=== PATIENT | male | born 1980 | race Hispanic/Latino ===

== ENCOUNTER 2023-11-25 21:39 | Emergency (ER) | payer SELFPAY ==
[~2023-11-25] VITALS: Ht 170.2 cm; Wt 80.7 kg
[2023-11-25 21:58] VITALS: PULSE 55; RESP 16; TEMP 98.6
[2023-11-25 23:32] LABS: CLARITY,URINE SL CLOUDY (CLEAR); COLOR,URINE YELLOW (YELLOW)
[2023-11-25 23:33] LABS: BILIRUBIN,URINE NEGATIVE (NEGATIVE); GLUCOSE, URINE NEGATIVE (NEGATIVE); KETONES,URINE TRACE (NEGATIVE); LEUKOCYTE ESTERASE ,URINE SMALL (NEGATIVE); NITRITE,URINE NEGATIVE (NEGATIVE); PH,URINE 5.5 (5 - 7); PROTEIN,URINE DIPSTICK 1+ (NEGATIVE); URINE UROBILINOGEN 0.2 mg/dL (0.2 - 1)
[2023-11-25 23:36] LABS: BACTERIA,URINE MANY /HPF; EPITHELIAL CELLS,URINE FEW /LPF; WBC,URINE (MAN) >50 /HPF (0-5)
[2023-11-25 23:42] VITALS: BP 121/64; O2SAT 99
== END 2023-11-25 23:44 | disposition home or self-care (01) ==
LOC: ER 21:47
DX: R31.9 Hematuria, unspecified (principal); Z96.0 Presence of urogenital implants
CPT/HCPCS: 74176; 81001; 99283

== ENCOUNTER 2023-12-11 13:50 | Inpatient (IN) | payer SELFPAY ==
[2023-12-10 15:08] LABS: BASOPHILS % 0.3 % (0.0-1.0); EOSINOPHILS # (AUTO) 0.1 (0.0-0.4); EOSINOPHILS % 1.4 % (0.0-6.0); HEMATOCRIT 41.6 % (38.2-49.6); HEMOGLOBIN 13.6 g/dL (14.0-18.0); LYMPHOCYTES # (AUTO) 2.3 (1.0-3.2); LYMPHOCYTES % 26.4 % (18.0-39.1); MEAN CORPUSCULAR HEMOGLOBIN 31.3 pg (28-32); MEAN CORPUSCULAR HGB CONC 32.7 g/dL (31-35); MEAN CORPUSCULAR VOLUME 95.6 fL (81-99); MONOCYTES # (AUTO) 0.6 (0.2-0.8); MONOCYTES % 7.3 % (4.4-11.3); NEUTROPHILS # (AUTO) 5.7 (2.1-6.9); NEUTROPHILS % 64.4 % (38.7-80.0); PLATELET COUNT 271 x10e3/uL (140-360); RED BLOOD COUNT 4.35 x10e6/uL (4.3-5.7); RED CELL DISTRIBUTION WIDTH 12.9 % (11.7-14.4)
[2023-12-10 16:03] LABS: ANION GAP 14.9 mmol/L (8-16); CALCIUM 9.3 mg/dL (8.4-10.2); CREATININE, SERUM 0.88 mg/dL (0.72-1.25); POTASSIUM 3.9 mmol/L (3.5-5.1)
[~2023-12-11] VITALS: Ht 170.2 cm; Wt 80.7 kg
[~2023-12-11 13:50] MED LIST: DEXAMETHASONE SOD PHOS INJ 4 MG/ML SDV ONE; FENTANYL CITRATE/PF 100MCG/2 ML INJ ONE; GLYCOPYRROLATE INJ 0.2 MG/ML VIAL ONE; HYDRALAZINE HCL 20 MG/ML VIAL ONE; LABETALOL HCL 5 MG/ML 20ML VIAL ONE; LIDOCAINE HCL 2% LOCAL INJ 5 ML SDV VIAL INJ ONE; METOCLOPRAMIDE HCL 10 MG/2ML VIAL ONE; MIDAZOLAM HCL 2 MG/2 ML VIAL ONE; Morphine 10mg syringe 10 MG/ML INJ ONE; ONDANSETRON HCL INJ 2MG/ML 2ML 2 MG/ML VIAL ONE; PROPOFOL IV EMULSION 10 MG/ML 20 ML VIAL ONE; PROZAC20 MG PO; ROCURONIUM BROMIDE 10 MG/ML 5ML VIAL IV ONE; SEVOFLURANE INHAL SOLN 250 ML PEN BTL ONE; SUCCINYLCHOLINE CHLORIDE 20 MG/ML 10ML VIAL ONE
[2023-12-11] MEDS ORDERED: CEFTRIAXONE 1 GM VIAL ONE (14:38)
[2023-12-11] MEDS: LACTATED RINGER'S 1,000 ML ONE (14:45)
[2023-12-11] MEDS: GENTAMICIN 80MG/NS 100 ML 200 ML IV ONE (14:55)
[2023-12-11] MEDS ORDERED: FLOMAX0.4 MG PO (15:23)
[2023-12-11] MEDS ORDERED: TYLENOL EXTRA500 MG PO (15:23)
[2023-12-11] MEDS ORDERED: BUPIVACAINE LIPOSOME/PF 266 MG/20 ML IJ ONE (16:28)
[2023-12-11] MEDS ORDERED: ACETAMINOPHEN 1000 MG/100 ML IV PRN (17:15)
[2023-12-11] MEDS ORDERED: ONDANSETRON HCL INJ 2MG/ML 2ML 2 MG/ML VIAL IV PRN (17:15)
[2023-12-11] MEDS ORDERED: NALOXONE HCL INJ 0.4 MG/ML AMP IV PRN (17:15)
[2023-12-11] MEDS ORDERED: DIPHENHYDRAMINE HCL INJ 50 MG/ML VIAL IM PRN (17:15)
[2023-12-11] MEDS ORDERED: SUGAMMADEX SODIUM 200 MG/2 ML VIAL IV ONE (18:55)
[2023-12-11] MEDS: MEPERIDINE HCL INJ 25 MG/ML VIAL ONE (19:22)
[2023-12-11] MEDS: ONDANSETRON HCL INJ 2MG/ML 2ML 2 MG/ML VIAL ONE (19:26)
[2023-12-11] MEDS: SODIUM CHLORIDE 0.9% 250ML IRRIG IR SCH (19:30)
[2023-12-11 19:50] LABS: BASOPHILS # (AUTO) 0.1 (0.0-0.1); BASOPHILS % 0.2 % (0.0-1.0); EOSINOPHILS % 0.2 % (0.0-6.0); HEMATOCRIT 40.4 % (38.2-49.6); HEMOGLOBIN 13.1 g/dL (14.0-18.0); LYMPHOCYTES # (AUTO) 1.7 (1.0-3.2); LYMPHOCYTES % 8.6 % (18.0-39.1); MEAN CORPUSCULAR HEMOGLOBIN 31.7 pg (28-32); MEAN CORPUSCULAR HGB CONC 32.4 g/dL (31-35); MEAN CORPUSCULAR VOLUME 97.8 fL (81-99); MONOCYTES # (AUTO) 0.6 (0.2-0.8); MONOCYTES % 2.9 % (4.4-11.3); NEUTROPHILS # (AUTO) 17.6 (2.1-6.9); NEUTROPHILS % 87.8 % (38.7-80.0); PLATELET COUNT 251 x10e3/uL (140-360); RED BLOOD COUNT 4.13 x10e6/uL (4.3-5.7); RED CELL DISTRIBUTION WIDTH 13.2 % (11.7-14.4)
[2023-12-11] MEDS: MORPHINE SULFATE 1 MG/ML 30ML PCA IV PRN (19:58)
[2023-12-11 20:08] LABS: ANION GAP 18.8 mmol/L (8-16); CALCIUM 8.7 mg/dL (8.4-10.2); CREATININE, SERUM 0.76 mg/dL (0.72-1.25); POTASSIUM 3.8 mmol/L (3.5-5.1)
[2023-12-11 20:29] VITALS: BP 117/45; PULSE 56; RESP 18; TEMP 97.8; O2SAT 99
[2023-12-11 21:00] VITALS: BP 117/45; PULSE 56; RESP 18; TEMP 97.8; O2SAT 99
[2023-12-11] MEDS: D5.45%NS/KCL 20MEQ 1,000 ML IV SCH (21:47)
[2023-12-11 22:45] VITALS: PULSE 51; RESP 18; O2SAT 98
[2023-12-12] VITALS (9 sets, daily range): BP systolic 116–130; BP diastolic 65–78; PULSE 52–72; RESP 16–18; TEMP 98.1–99; O2SAT 95–99
[2023-12-12 07:22] LABS: BASOPHILS % 0.2 % (0.0-1.0); HEMATOCRIT 40.1 % (38.2-49.6); LYMPHOCYTES # (AUTO) 1.5 (1.0-3.2); LYMPHOCYTES % 11.7 % (18.0-39.1); MEAN CORPUSCULAR HEMOGLOBIN 31.4 pg (28-32); MEAN CORPUSCULAR HGB CONC 32.4 g/dL (31-35); MEAN CORPUSCULAR VOLUME 96.9 fL (81-99); MONOCYTES # (AUTO) 1.1 (0.2-0.8); MONOCYTES % 8.5 % (4.4-11.3); NEUTROPHILS # (AUTO) 10.4 (2.1-6.9); NEUTROPHILS % 79.2 % (38.7-80.0); PLATELET COUNT 253 x10e3/uL (140-360); RED BLOOD COUNT 4.14 x10e6/uL (4.3-5.7); RED CELL DISTRIBUTION WIDTH 13.3 % (11.7-14.4); WHITE BLOOD COUNT 13.12 x10e3/uL (4.8-10.8)
[2023-12-12 07:38] LABS: CALCIUM 8.8 mg/dL (8.4-10.2); CREATININE, SERUM 0.79 mg/dL (0.72-1.25)
[2023-12-13 06:34] LABS: BASOPHILS % 0.4 % (0.0-1.0); EOSINOPHILS # (AUTO) 0.1 (0.0-0.4); EOSINOPHILS % 1.2 % (0.0-6.0); HEMATOCRIT 36.3 % (38.2-49.6); LYMPHOCYTES # (AUTO) 1.4 (1.0-3.2); LYMPHOCYTES % 14.1 % (18.0-39.1); MEAN CORPUSCULAR HEMOGLOBIN 31.5 pg (28-32); MEAN CORPUSCULAR HGB CONC 33.1 g/dL (31-35); MEAN CORPUSCULAR VOLUME 95.3 fL (81-99); MONOCYTES % 9.5 % (4.4-11.3); NEUTROPHILS # (AUTO) 7.5 (2.1-6.9); NEUTROPHILS % 74.5 % (38.7-80.0); PLATELET COUNT 218 x10e3/uL (140-360); RED BLOOD COUNT 3.81 x10e6/uL (4.3-5.7); RED CELL DISTRIBUTION WIDTH 13.4 % (11.7-14.4)
[2023-12-13 07:01] LABS: CREATININE, SERUM 0.72 mg/dL (0.72-1.25); POTASSIUM 4.1 mmol/L (3.5-5.1)
[2023-12-13 07:41] VITALS: PULSE 69; RESP 16; O2SAT 96
[2023-12-13 09:00] VITALS: BP 119/63; PULSE 69; RESP 18; TEMP 99; O2SAT 99
[2023-12-13] MEDS: ACETAMINOPHEN/CODEINE 300MG - 30MG TAB PO PRN (13:55)
[2023-12-13] MEDS: ACETAMINOPHEN 1000 MG/100 ML IV PRN (16:28)
[2023-12-13 17:28] VITALS: BP 110/64; PULSE 58; RESP 19; TEMP 98.6; O2SAT 100
[2023-12-13] MEDS: SENNA-S TABLET PO SCH (17:56)
[2023-12-13 20:00] VITALS: BP 113/68; PULSE 59; RESP 20; TEMP 98; O2SAT 100
[2023-12-13 20:43] VITALS: PULSE 68; RESP 16; O2SAT 98
[2023-12-13] MEDS: MORPHINE SULFATE 1 MG/ML 30ML PCA ONE (22:09)
[2023-12-14] VITALS (10 sets, daily range): BP systolic 114–129; BP diastolic 57–77; PULSE 54–71; RESP 16–20; TEMP 98.2–99; O2SAT 94–100
[2023-12-14 05:05] LABS: BASOPHILS % 0.3 % (0.0-1.0); EOSINOPHILS # (AUTO) 0.3 (0.0-0.4); EOSINOPHILS % 3.7 % (0.0-6.0); HEMATOCRIT 36.3 % (38.2-49.6); HEMOGLOBIN 11.8 g/dL (14.0-18.0); LYMPHOCYTES # (AUTO) 1.6 (1.0-3.2); MEAN CORPUSCULAR HEMOGLOBIN 31.5 pg (28-32); MEAN CORPUSCULAR HGB CONC 32.5 g/dL (31-35); MEAN CORPUSCULAR VOLUME 96.8 fL (81-99); MONOCYTES # (AUTO) 0.8 (0.2-0.8); MONOCYTES % 8.8 % (4.4-11.3); NEUTROPHILS # (AUTO) 6.1 (2.1-6.9); NEUTROPHILS % 68.6 % (38.7-80.0); PLATELET COUNT 221 x10e3/uL (140-360); RED BLOOD COUNT 3.75 x10e6/uL (4.3-5.7)
[2023-12-14 05:21] LABS: ANION GAP 12.7 mmol/L (8-16); CREATININE, SERUM 0.75 mg/dL (0.72-1.25); POTASSIUM 3.7 mmol/L (3.5-5.1)
[2023-12-14] MEDS ORDERED: ONDANSETRON HCL 4 MG ORAL DISINTEGRATING TAB PO PRN (14:15)
[2023-12-14] MEDS: LEVOFLOXACIN 500MG/D5W 100ML 100 ML IV SCH (17:13)
[2023-12-14] MEDS: KETOROLAC TROMETHAMINE 10 MG TAB PO PRN (18:21)
[2023-12-15] VITALS: BP 120/61; PULSE 51; RESP 17; TEMP 98.2; O2SAT 98
[2023-12-15 04:00] VITALS: BP 122/57; PULSE 54; RESP 18; TEMP 98.3; O2SAT 98
[2023-12-15 05:27] LABS: BASOPHILS % 0.4 % (0.0-1.0); EOSINOPHILS # (AUTO) 0.4 (0.0-0.4); EOSINOPHILS % 5.7 % (0.0-6.0); HEMATOCRIT 36.8 % (38.2-49.6); HEMOGLOBIN 11.9 g/dL (14.0-18.0); LYMPHOCYTES % 30.1 % (18.0-39.1); MEAN CORPUSCULAR HEMOGLOBIN 31.2 pg (28-32); MEAN CORPUSCULAR HGB CONC 32.3 g/dL (31-35); MEAN CORPUSCULAR VOLUME 96.6 fL (81-99); MONOCYTES # (AUTO) 0.7 (0.2-0.8); NEUTROPHILS # (AUTO) 3.6 (2.1-6.9); NEUTROPHILS % 53.7 % (38.7-80.0); PLATELET COUNT 255 x10e3/uL (140-360); RED BLOOD COUNT 3.81 x10e6/uL (4.3-5.7); RED CELL DISTRIBUTION WIDTH 12.9 % (11.7-14.4); WHITE BLOOD COUNT 6.68 x10e3/uL (4.8-10.8)
[2023-12-15 06:13] LABS: CALCIUM 8.8 mg/dL (8.4-10.2); CREATININE, SERUM 0.73 mg/dL (0.72-1.25)
[2023-12-15 08:04] VITALS: BP 116/51; PULSE 55; RESP 18; TEMP 98; O2SAT 98
[2023-12-15 11:59] VITALS: BP 115/59; PULSE 55; RESP 18; TEMP 97.8; O2SAT 99
[2023-12-15] MEDS ORDERED: LEVOFLOXACIN 500 MG TAB PO SCH (16:00)
== END 2023-12-15 12:20 | disposition home or self-care (01) | DRG 654 ==
LOC: OR 13:50 → PACU V 14:45 → MED/SURG2 20:42
PROVIDERS: ADMIT Urology; ATTEND Urology
PROC: 0T9B70Z Drainage of Bladder with Drainage Device, Via Natural or Artificial Opening (ICD-10-PCS; 2023-12-11)
PROC: 0TBB0ZZ Excision of Bladder, Open Approach (ICD-10-PCS; principal; 2023-12-11 16:37)
DX: N32.3 Diverticulum of bladder (principal); E87.1 Hypo-osmolality and hyponatremia; R33.9 Retention of urine, unspecified; Z87.440 Personal history of urinary (tract) infections; E66.9 Obesity, unspecified; Z68.27 Body mass index [BMI] 27.0-27.9, adult
CPT/HCPCS: 36415; 80048; 83735; 85025; 87086; 87186; 88304; 93005; 94799; C1758; J0330; J0360; J0690; J0696; J1100; J1580; J1956; J2001; J2175; J2250; J2270; J2405; J2765

== ENCOUNTER → 2024-01-01 | Outpatient (REF) | payer SELFPAY ==
[~2024-01-01] MED LIST changes: -DEXAMETHASONE SOD PHOS INJ 4 MG/ML SDV ONE; -FENTANYL CITRATE/PF 100MCG/2 ML INJ ONE; +FLOMAX0.4 MG PO; -GLYCOPYRROLATE INJ 0.2 MG/ML VIAL ONE; -HYDRALAZINE HCL 20 MG/ML VIAL ONE; +IOPAMIDOL 370 MG/ML 100 ML INFUS..BTL INJ ONE; -LABETALOL HCL 5 MG/ML 20ML VIAL ONE; -LIDOCAINE HCL 2% LOCAL INJ 5 ML SDV VIAL INJ ONE; -METOCLOPRAMIDE HCL 10 MG/2ML VIAL ONE; -MIDAZOLAM HCL 2 MG/2 ML VIAL ONE; -Morphine 10mg syringe 10 MG/ML INJ ONE; -ONDANSETRON HCL INJ 2MG/ML 2ML 2 MG/ML VIAL ONE; -PROPOFOL IV EMULSION 10 MG/ML 20 ML VIAL ONE; -ROCURONIUM BROMIDE 10 MG/ML 5ML VIAL IV ONE; -SEVOFLURANE INHAL SOLN 250 ML PEN BTL ONE; +SODIUM CHLORIDE 0.9% 500ML 500 ML ONE; -SUCCINYLCHOLINE CHLORIDE 20 MG/ML 10ML VIAL ONE; +TYLENOL EXTRA500 MG PO
== END ==
LOC: CT 12:16
PROVIDERS: ATTEND Urology
DX: N32.3 Diverticulum of bladder (principal)
CPT/HCPCS: 72194; J7040; Q9967